=== PATIENT | female | born 1955 | race Caucasian/White ===

== ENCOUNTER 2018-01-22 15:23 | Inpatient (IN) | payer MEDICAID ==
[2018-01-22] MEDS ORDERED: NORMAL SALINE 1000 ML 1,000 ML IV ONE (17:12)
[2018-01-22] MEDS ORDERED: METOCLOPRAMIDE HCL INJ/PF 10 MG/2 ML SDV IV ONE (17:12)
--- NOTE | 2018-01-22 17:13 | ER Document Report ---
ED Medical Screen (RME) - General Chief Complaint: Nausea/Vomiting/Diarrhea Stated Complaint: VOMITING Time Seen by Provider: 01/22/18 17:11 Notes: recent onset of nvd and abd pain TRAVEL OUTSIDE OF THE [place] IN LAST 30 DAYS: No - Related Data Allergies/Adverse Reactions: ketorolac [From Toradol] Allergy (Verified 01/22/18 15:28) muscle relaxers Allergy (Uncoded 08/29/16 10:42) Past Medical History - Social History Chew tobacco use (# tins/day): No Frequency of alcohol use: None Drug Abuse: None - Past Medical History Cardiac Medical History: Denies: Hx Coronary Artery Disease, Hx Heart Attack, Hx Hypertension Pulmonary Medical History: Denies: Hx Asthma, Hx Bronchitis, Hx COPD, Hx Pneumonia Neurological Medical History: Denies: Hx Cerebrovascular Accident, Hx Seizures Renal/ Medical History: Reports: Hx Kidney Stones. Denies: Hx Peritoneal Dialysis Musculoskeltal Medical History: Reports Hx Arthritis Psychiatric Medical History: Reports: Hx Depression Past Surgical History: Reports: Hx Orthopedic Surgery - foot - Immunizations Hx Diphtheria, Pertussis, Tetanus Vaccination: Yes Physical Exam - Vital signs Vitals: Temp Pulse Resp BP Pulse Ox 97.9 F 121 H 16 143/87 H 97 01/22/18 15:42 01/22/18 15:42 01/22/18 15:42 01/22/18 15:42 01/22/18 15:42 Course - Vital Signs Vital signs: Temp Pulse Resp BP Pulse Ox 97.9 F 121 H 16 143/87 H 97 01/22/18 15:42 01/22/18 15:42 01/22/18 15:42 01/22/18 15:42 01/22/18 15:42
[2018-01-22 18:18] LABS: ABSOLUTE MONOCYTES (AUTO) 0.4 10^3/uL (0.1-1.4); ABSOLUTE NEUT (AUTO) 4.6 10^3/uL (1.7-8.2); BASOPHILS % (AUTO) 0.2 % (0-2); EOSINOPHILS % (AUTO) 0.2 % (0-6); HEMATOCRIT 45.3 % (36.0-47.0); HEMOGLOBIN 15.1 g/dL (12.0-15.5); LYMPHOCYTES % (AUTO) 16.2 % (13-45); MEAN CORPUSCULAR HEMOGLOBIN 30.3 pg (27.0-33.4); MEAN CORPUSCULAR HGB CONC 33.3 g/dL (32.0-36.0); MEAN CORPUSCULAR VOLUME 91 fl (80-97); MONOCYTES % (AUTO) 5.9 % (3-13); PLATELET COUNT 272 10^3/uL (150-450); RED BLOOD COUNT 4.98 10^6/uL (3.72-5.28); RED CELL DISTRIBUTION WIDTH 13.9 % (11.5-14.0); SEGMENTED NEUTROPHILS % (AUTO) 77.5 % (42-78); TOTAL CELLS COUNTED % (AUTO) 100 %; WHITE BLOOD COUNT 5.9 10^3/uL (4.0-10.5)
[2018-01-22 18:36] LABS: ALANINE AMINOTRANSFERASE 17 U/L (9-52); ALBUMIN 5.4 g/dL (3.5-5.0); ALKALINE PHOSPHATASE 76 U/L (38-126); ASPARTATE AMINO TRANSFERASE 25 U/L (14-36); BILIRUBIN,DIRECT 0.6 mg/dL (0.0-0.4); BILIRUBIN,TOTAL 0.6 mg/dL (0.2-1.3); BLOOD UREA NITROGEN 10 mg/dL (7-20); CALCIUM 11.8 mg/dL (8.4-10.2); GLUCOSE 94 mg/dL (75-110); LIPASE 268.9 U/L (23-300); POTASSIUM 3.9 mmol/L (3.6-5.0); TOTAL PROTEIN 9.5 g/dL (6.3-8.2)
[2018-01-22 18:42] LABS: CHLORIDE 112 mmol/L (98-107); SODIUM 145.9 mmol/L (137-145)
[2018-01-22 18:44] LABS: ANION GAP 26 (5-19)
[2018-01-22 18:46] LABS: CARBON DIOXIDE 8 mmol/L (22-30)
[2018-01-22 19:12] LABS: APPEARANCE,URINE CLEAR; BILIRUBIN,URINE NEGATIVE (NEGATIVE); COLOR,URINE YELLOW; GLUCOSE, URINE NEGATIVE (NEGATIVE); KETONES,URINE 80 mg/dL (NEGATIVE); LEUKOCYTE ESTERASE,URINE NEGATIVE (NEGATIVE); NITRITE,URINE NEGATIVE (NEGATIVE); PROTEIN,URINE 100 mg/dL (NEGATIVE); URINE SPECIFIC GRAVITY 1.025; UROBILINOGEN,URINE NEGATIVE mg/dL (<2.0)
[2018-01-22] MEDS ORDERED: RINGERS SOLUTION,LACTATED 1,000 ML IV ONE (20:23)
[2018-01-22] MEDS ORDERED: ONDANSETRON HCL INJ/PF 4 MG/2 ML SDV IV ONE (20:32)
[2018-01-22] MEDS ORDERED: OXYCODONE-ACETAMINOPHEN 5-325 MG TABLET PO ONE (20:33)
--- NOTE | 2018-01-22 20:34 | ER Document Report ---
ED General - General Chief Complaint: Nausea/Vomiting/Diarrhea Stated Complaint: VOMITING Time Seen by Provider: 01/22/18 17:11 Notes: Patient is a 62-year-old female with medical history as documented who presents with 3 days of nausea, vomiting and diarrhea. Patient reports that she has been unable to tolerate any fluids during that time. She states that each time she tries to drink fluids she vomits. Nothing seems to improve or worsen her symptoms. Symptoms have been unchanged since onset. She denies a history of similar symptoms in the past. She has not seen a primary care doctor regarding today's concerns. She denies any abdominal pain, chest pain, shortness of breath, headache, neck pain or altered mental status. She is uncertain whether or not she has had sick contacts. TRAVEL OUTSIDE OF THE [place] IN LAST 30 DAYS: No - Related Data Allergies/Adverse Reactions: ketorolac [From Toradol] Allergy (Verified 01/22/18 15:28) alprazolam [From Xanax] Adverse Reaction (Severe, Verified 01/23/18 01:18) promethazine [From Phenergan] Adverse Reaction (Intermediate, Verified 01/23/18 01:18) Diarrhea muscle relaxers Allergy (Intermediate, Uncoded 01/23/18 01:17) other Past Medical History - General Information source: Patient - Social History Smoking Status: Never Smoker Chew tobacco use (# tins/day): No Frequency of alcohol use: None Drug Abuse: None Lives with: Family Family History: Reviewed & Not Pertinent Patient has suicidal ideation: No Patient has homicidal ideation: No - Past Medical History Cardiac Medical History: Denies: Hx Coronary Artery Disease, Hx Heart Attack, Hx Hypertension Pulmonary Medical History: Denies: Hx Asthma, Hx Bronchitis, Hx COPD, Hx Pneumonia Neurological Medical History: Denies: Hx Cerebrovascular Accident, Hx Seizures Renal/ Medical History: Reports: Hx Kidney Stones. Denies: Hx Peritoneal Dialysis Musculoskeltal Medical History: Reports Hx Arthritis Psychiatric Medical History: Reports: Hx Depression Past Surgical History: Reports: Hx Orthopedic Surgery - foot - Immunizations Hx Diphtheria, Pertussis, Tetanus Vaccination: Yes Review of Systems - Review of Systems Notes: Constitutional: Negative for fever. HENT: Negative for sore throat. Eyes: Negative for visual changes. Cardiovascular: Negative for chest pain. Respiratory: Negative for shortness of breath. Gastrointestinal: Positive for vomiting and diarrhea Genitourinary: Negative for dysuria. Musculoskeletal: Negative for back pain. Skin: Negative for rash. Neurological: Negative for headaches, weakness or numbness. 10 point ROS negative except as marked above and in HPI. Physical Exam - Vital signs Vitals: Temp Pulse Resp BP Pulse Ox 97.9 F 121 H 16 143/87 H 97 01/22/18 15:42 01/22/18 15:42 01/22/18 15:42 01/22/18 15:42 01/22/18 15:42 Interpretation: Hypertensive, Tachycardic Notes: PHYSICAL EXAMINATION: GENERAL: Appears slightly uncomfortable but in no acute distress HEAD: Atraumatic, normocephalic. EYES: Pupils equal round and reactive to light, extraocular movements intact, sclera anicteric, conjunctiva are normal. ENT: nares patent, oropharynx clear without exudates. Dry mucous membranes. NECK: Normal range of motion, supple without lymphadenopathy LUNGS: Breath sounds clear to auscultation bilaterally and equal. No wheezes rales or rhonchi. HEART: Regular tachycardia without murmurs ABDOMEN: Soft, nontender, normoactive bowel sounds. No guarding, no rebound. No masses appreciated. EXTREMITIES: Normal range of motion, no pitting or edema. No cyanosis. NEUROLOGICAL: No focal neurological deficits. Moves all extremities spontaneously and on command. PSYCH: Normal mood, normal affect. SKIN: Warm, Dry, normal turgor, no rashes or lesions noted. Course - Re-evaluation Re-evalutation: 01/22/18 20:33 Presentation of an overall well-appearing patient in no acute distress with complaints of nausea, vomiting, diarrhea. This is consistent with likely viral gastroenteritis. Patient has no abdominal tenderness on exam and specifically no tenderness in the RLQ, LLQ, RUQ. Low clinical suspicion for any acute life- threatening etiology based on exam and history including acute cholecystitis, SBO, appendicitis, nephrolithiasis, or pylonephritis. However, she does have severe dehydration with an anion gap and very low bicarb as well as proteinuria and a elevated urine specific gravity. Patient continues to look markedly dehydrated on assessment after receiving 1 L fluid. Will provide an additional liter of fluid and redraw her labs to assess for current status after receiving IV rehydration. 2300-repeat levels do show continued carbonate level patient continues to be quite dehydrated on clinical exam. I discussed with the hospitalist for admission and she has agreed to accept the patient. - Vital Signs Vital signs: Temp Pulse Resp BP Pulse Ox 97.9 F 77 18 121/58 L 97 01/23/18 03:13 01/23/18 03:13 01/23/18 03:13 01/23/18 03:13 01/23/18 03:13 - Laboratory Result Diagrams: 01/22/18 17:59 01/22/18 20:38 Laboratory results interpreted by me: 01/22/18 01/22/18 01/22/18 17:59 18:10 20:30 VBG pCO2 VBG HCO3 Sodium 145.9 H Chloride 112 H Carbon Dioxide 8 L* Anion Gap 26 H Calcium 11.8 H Direct Bilirubin 0.6 H Total Protein 9.5 H Albumin 5.4 H TSH 0.39 L Urine Protein 100 H Urine Ketones 80 H 01/22/18 01/22/18 20:38 20:38 VBG pCO2 24.8 L VBG HCO3 12.1 L Sodium 145.6 H Chloride 115 H Carbon Dioxide 11 L Anion Gap 20 H Calcium 10.4 H Direct Bilirubin Total Protein Albumin TSH Urine Protein Urine Ketones Discharge - Discharge Clinical Impression: Dehydration, severe, Low bicarbonate level, Nausea vomiting and diarrhea Condition: Fair Disposition: ADMITTED OBSERVATION Admitting Provider: Hospitalist - [facility] Unit Admitted: Medical Floor
[2018-01-22 20:55] LABS: VENOUS BLOOD BASE EXCESS -12.2 mmol/L; VENOUS BLOOD HCO3 12.1 mmol/L (20-32); VENOUS BLOOD PCO2 24.8 mmHg (35-63); VENOUS BLOOD PH 7.31 (7.30-7.42)
[2018-01-22 21:15] LABS: BLOOD UREA NITROGEN 9 mg/dL (7-20); CALCIUM 10.4 mg/dL (8.4-10.2); CHLORIDE 115 mmol/L (98-107); GLUCOSE 79 mg/dL (75-110); POTASSIUM 4.2 mmol/L (3.6-5.0)
[2018-01-22 21:21] LABS: ANION GAP 20 (5-19); CARBON DIOXIDE 11 mmol/L (22-30); SODIUM 145.6 mmol/L (137-145)
[2018-01-22] MEDS ORDERED: ACETAMINOPHEN 325 MG TABLET PO PRN (22:02)
[2018-01-22] MEDS ORDERED: PROMETHAZINE HCL INJ 25 MG/1 ML VIAL IV PRN (22:02)
[2018-01-22] MEDS ORDERED: SODIUM BICARBONATE 8.4% INJ 50 MEQ/50 ML DISP.SYRIN IV ONE ×2 (22:09)
[2018-01-23] MEDS ORDERED: (PENDING PHARMACY ID) (Oxycodone Hcl/Acetaminophen [Oxycodone-Acetaminophen 10-325] 1 EACH PO SCH
[2018-01-23] MEDS: METOCLOPRAMIDE HCL INJ/PF 10 MG/2 ML SDV IV PRN ×5 (01:05→23:33)
[2018-01-23] MEDS: ZOLPIDEM TARTRATE 5 MG TABLET PO PRN ×2 (01:06→21:49)
[2018-01-23] MEDS: OXYCODONE-ACETAMINOPHEN 5-325 MG TABLET PO SCH ×5 (01:07→23:33)
[2018-01-23] MEDS: OXYCODONE HCL IR 5 MG TABLET PO SCH ×5 (01:07→23:33)
--- NOTE | 2018-01-23 01:30 | PDOC H&P ---
History of Present Illness Patient complains of: Nausea vomiting and diarrhea x 3 days. History of Present Illness: MILI YEE is a 62 year old female with history of chronic pain syndrome was admitted with above-mentioned complaints. The patient is complaining of abdominal pain secondary to severe nausea and vomiting but denies any fever or chills. She also denies any chest pain but she had some shortness of breath and decreased urine output over the last few days. She denies any sick contacts, eating different kind of food or being on any antibiotics recently. She also denies any syncope or focal weakness but she complains of generalized weakness. She said that she ran out of [employer] and was unable to fill her prescriptions today. Her family advised her to come to the hospital for further management and treatment. In the ED, her temperature was 97.9, heart rate 121, respiratory rate 16, blood pressure 143/87 with oxygen saturation of 97% on room air. Her WBC was 5.9. Her sodium was 145.9, with potassium of 3.9 and bicarb 8. Her blood glucose was 94. She received 1 L normal saline x1 and 1 L Ringer's lactate x1. Repeat bicarb was 11. She was admitted for symptoms management and electrolytes replacement as indicated. Past Medical History Medical History: Other - According to the patient and based on previous records. Cardiac Medical History: Denies: Coronary Artery Disease, Myocardial Infarction, Hypertension Pulmonary Medical History: Denies: Asthma, Bronchitis, Chronic Obstructive Pulmonary Disease (COPD), Pneumonia Neurological Medical History: Denies: Seizures Musculoskeltal Medical History: Reports: Arthritis Psychiatric Medical History: Reports: Depression Hematology: Denies: Anemia Past Surgical History Past Surgical History: Reports: Orthopedic Surgery - left ankle surgery., Other - left pneumothorax post [address] Social History Smoking Status: Former Smoker Cigarettes Packs Per Day: 0 - He used to smoke up to 2 packs a day for 44 years. Frequency of Alcohol Use: None Hx Recreational Drug Use: No - Advance Directive Resuscitation Status: Full Code Family History Parental Family History Reviewed: Yes - Father unknown, mother: diabetes, CAD, Crohn's disease. Children Family History Reviewed: No Sibling(s) Family History Reviewed.: Yes Medication/Allergy Home Medications: Diazepam [Valium 5 mg Tablet] 10 mg PO TID 08/29/16 Megestrol Acetate 20 ml PO DAILY 08/29/16 Oxycodone HCl/Acetaminophen [Oxycodone-Acetaminophen 10-325] 1 each PO Q6 Oxymorphone HCl [Opana ER] 20 mg PO Q12 08/29/16 Suvorexant [Belsomra] 10 mg PO QHS 08/29/16 Vortioxetine Hydrobromide [Trintellix] 5 mg PO DAILY 08/29/16 Allergies/Adverse Reactions: ketorolac [From Toradol] Allergy (Verified 01/22/18 15:28) alprazolam [From Xanax] Adverse Reaction (Severe, Verified 01/23/18 01:18) promethazine [From Phenergan] Adverse Reaction (Intermediate, Verified 01/23/18 01:18) Diarrhea muscle relaxers Allergy (Intermediate, Uncoded 01/23/18 01:17) other Review of Systems ROS unobtainable: Other - Pertinent positives and negatives as detailed in the HPI. Physical Exam Vital Signs: Temp Pulse Resp BP Pulse Ox 97.9 F 121 H 19 143/87 H 97 01/22/18 15:42 01/22/18 15:42 01/22/18 21:00 01/22/18 15:42 01/22/18 15:42 Intake & Output 01/21/18 01/22/18 01/23/18 06:59 06:59 06:59 Weight 63.5 kg General appearance: PRESENT: no acute distress, well-developed Head exam: PRESENT: atraumatic, normocephalic Eye exam: PRESENT: conjunctiva pink, PERRLA. ABSENT: scleral icterus Mouth exam: PRESENT: neck supple. ABSENT: moist Neck exam: PRESENT: full ROM. ABSENT: JVD Respiratory exam: PRESENT: clear to auscultation ford. ABSENT: rales, rhonchi, wheezes Cardiovascular exam: PRESENT: RRR, +S1, +S2 Pulses: PRESENT: normal dorsalis pedis pul GI/Abdominal exam: PRESENT: normal bowel sounds, soft. ABSENT: distended, rebound, tenderness Rectal exam: PRESENT: deferred Extremities exam: PRESENT: full ROM, pedal edema - left leg edema chronic since ankle surgery. Musculoskeletal exam: PRESENT: full ROM Neurological exam: PRESENT: alert, altered, awake. ABSENT: motor sensory deficit - grossly. Skin exam: PRESENT: dry, warm. ABSENT: erythema, rash Results Laboratory Results: 01/22/18 17:59 01/22/18 20:38 01/22/18 01/22/18 01/22/18 17:59 17:59 18:10 WBC 5.9 RBC 4.98 Hgb 15.1 Hct 45.3 MCV 91 MCH 30.3 MCHC 33.3 RDW 13.9 Plt Count 272 Seg Neutrophils % 77.5 Lymphocytes % 16.2 Monocytes % 5.9 Eosinophils % 0.2 Basophils % 0.2 Absolute Neutrophils 4.6 Absolute Lymphocytes 1.0 Absolute Monocytes 0.4 Absolute Eosinophils 0.0 Absolute Basophils 0.0 VBG pH VBG pCO2 VBG HCO3 VBG Base Excess Sodium 145.9 H Potassium 3.9 Chloride 112 H Carbon Dioxide 8 L* Anion Gap 26 H BUN 10 Creatinine 0.71 Est GFR ( Amer) > 60 Est GFR (Non-Af Amer) > 60 Glucose 94 Calcium 11.8 H Total Bilirubin 0.6 AST 25 ALT 17 Alkaline Phosphatase 76 Total Protein 9.5 H Albumin 5.4 H Lipase 268.9 Urine Color YELLOW Urine Appearance CLEAR Urine pH 6.0 Ur Specific [place] 1.025 Urine Protein 100 H Urine Glucose (UA) NEGATIVE Urine Ketones 80 H Urine Blood NEGATIVE Urine Nitrite NEGATIVE Ur Leukocyte Esterase NEGATIVE Urine WBC (Auto) 2 Urine RBC (Auto) 1 01/22/18 01/22/18 20:38 20:38 WBC RBC Hgb Hct MCV MCH MCHC RDW Plt Count Seg Neutrophils % Lymphocytes % Monocytes % Eosinophils % Basophils % Absolute Neutrophils Absolute Lymphocytes Absolute Monocytes Absolute Eosinophils Absolute Basophils VBG pH 7.31 VBG pCO2 24.8 L VBG HCO3 12.1 L VBG Base Excess -12.2 Sodium 145.6 H Potassium 4.2 Chloride 115 H Carbon Dioxide 11 L Anion Gap 20 H BUN 9 Creatinine 0.63 Est GFR ( Amer) > 60 Est GFR (Non-Af Amer) > 60 Glucose 79 Calcium 10.4 H Total Bilirubin AST ALT Alkaline Phosphatase Total Protein Albumin Lipase Urine Color Urine Appearance Urine pH Ur Specific [place] Urine Protein Urine Glucose (UA) Urine Ketones Urine Blood Urine Nitrite Ur Leukocyte Esterase Urine WBC (Auto) Urine RBC (Auto) EKG Comments: none. Assessment & Plan - Diagnosis (1) Nausea vomiting and diarrhea Is this a current diagnosis for this admission?: Yes Plan: Possibly secondary to viral infection. Will check abdominal x-ray and UDS and continue supportive care. (2) Alkalosis, metabolic Is this a current diagnosis for this admission?: Yes Plan: in the setting of nausea vomiting and GI losses. We will give 1 amp of bicarb and start bicarb drip for now. Will repeat serial BMPs and adjust electrolytes as needed. (3) Chronic pain syndrome Is this a current diagnosis for this admission?: No Plan: We will resume her home medications once able to tolerate oral intake. - Time Time Spent: 30 to 50 Minutes Anticipated discharge: Home - Inpatient Certification Based on my medical assessment, after consideration of the patient's comorbidities, presenting symptoms, or acuity I expect that the services needed warrant INPATIENT care.: Yes I certify that my determination is in accordance with my understanding of Medicare's requirements for reasonable and necessary INPATIENT services [42 CFR 412.3e].: Yes
[2018-01-23 03:14] LABS: URINE AMPHETAMINES SCREEN NEGATIVE; URINE BARBITURATES SCREEN NEGATIVE; URINE BENZODIAZEPINES SCREEN UNCONFIRMED POSITIVE; URINE COCAINE SCREEN NEGATIVE; URINE MARIJUANA (THC) SCREEN UNCONFIRMED POSITIVE; URINE METHADONE SCREEN NEGATIVE; URINE PHENCYCLIDINE SCREEN NEGATIVE
[2018-01-23] MEDS: HEPARIN SOD (PORCINE) 5,000 UNIT/ML 1 ML SYRINGE SUBCUT SCH ×3 (06:29→21:49)
[2018-01-23 06:45] LABS: HEMATOCRIT 35.6 % (36.0-47.0); MEAN CORPUSCULAR HEMOGLOBIN 30.4 pg (27.0-33.4); MEAN CORPUSCULAR HGB CONC 33.6 g/dL (32.0-36.0); MEAN CORPUSCULAR VOLUME 91 fl (80-97); PLATELET COUNT 184 10^3/uL (150-450); RED BLOOD COUNT 3.93 10^6/uL (3.72-5.28); RED CELL DISTRIBUTION WIDTH 13.4 % (11.5-14.0); WHITE BLOOD COUNT 3.6 10^3/uL (4.0-10.5)
[2018-01-23 07:15] LABS: ANION GAP 13 (5-19); BLOOD UREA NITROGEN 8 mg/dL (7-20); CALCIUM 9.6 mg/dL (8.4-10.2); CARBON DIOXIDE 17 mmol/L (22-30); CHLORIDE 114 mmol/L (98-107); GLUCOSE 72 mg/dL (75-110); POTASSIUM 3.8 mmol/L (3.6-5.0); SODIUM 143.5 mmol/L (137-145)
[2018-01-23] MEDS ORDERED: RINGERS SOLUTION,LACTATED 1,000 ML IV PRN ×2 (07:56→16:06)
--- NOTE | 2018-01-23 08:31 | RADIOLOGY REPORT (SQ) ---
EXAM DESCRIPTION: ABDOMEN 2 VIEWS COMPLETED DATE/TIME: 01/22/2018 11:04 pm REASON FOR STUDY: nausea/vomiting and diarrhea COMPARISON: None. NUMBER OF VIEWS: Two views. TECHNIQUE: Supine and erect/decubitus radiographic images of the abdomen acquired. LIMITATIONS: None. FINDINGS: FREE AIR: None. No abnormal gas collections. LUNG BASES: Clear. BOWEL GAS PATTERN: Nonobstructive pattern. No dilated loops or air fluid levels. CALCIFICATIONS: No suspicious calcifications. SOFT TISSUES: No gross mass or suggestion of organomegaly. HARDWARE: None in the abdomen. BONES: No acute fracture. No worrisome bone lesions. OTHER: No other significant finding. IMPRESSION: NO RADIOGRAPHIC EVIDENCE FOR ACUTE ABDOMINAL DISEASE. TECHNICAL DOCUMENTATION: JOB ID: [id number] [employer]- All Rights Reserved Reading location - IP/workstation name: [email or web address]
[2018-01-23] MEDS: MEGESTROL ACETATE 20 MG TABLET PO SCH (09:18)
[2018-01-23] MEDS: MAGNESIUM SULFATE/D5W 1 GM/100 ML RTUPB IV SCH ×2 (09:20→10:12)
[2018-01-23] MEDS: DIAZEPAM 5 MG TABLET PO SCH ×3 (09:20→17:49)
[2018-01-23 14:57] LABS: ANION GAP 10 (5-19); BLOOD UREA NITROGEN 6 mg/dL (7-20); CALCIUM 9.1 mg/dL (8.4-10.2); CARBON DIOXIDE 19 mmol/L (22-30); CHLORIDE 113 mmol/L (98-107); GLUCOSE 69 mg/dL (75-110); POTASSIUM 3.2 mmol/L (3.6-5.0); SODIUM 141.9 mmol/L (137-145)
--- NOTE | 2018-01-23 16:05 | PDOC PROGRESS REPORT ---
Subjective Progress Note for:: 01/23/18 Subjective:: The patient is a 62-year-old female with a history of chronic pain syndrome who was admitted on 01/22/18 for nausea, vomiting, diarrhea 3 days resulting in metabolic alkalosis. Patient is seen on morning rounds. She is found resting in bed comfortably on room air. She states that her nausea and vomiting have resolved and that her last loose bowel movement was prior to moving upstairs. Is currently tolerating clear liquids and states that she is feeling quite hungry and requests have her diet advanced. She is hopeful to be discharged either late today or early tomorrow morning as she is feeling significantly better. She has no other questions or concerns at this time. Reason For Visit: NAUSEA/VOMITING AND DIARRHEA Physical Exam Vital Signs: Temp Pulse Resp BP Pulse Ox 98.0 F 74 16 123/52 L 98 01/23/18 15:04 01/23/18 15:04 01/23/18 15:04 01/23/18 15:04 01/23/18 15:04 Intake & Output 01/22/18 01/23/18 01/24/18 06:59 06:59 06:59 Intake Total 50 Balance 50 Weight 64.5 kg General appearance: PRESENT: no acute distress, cooperative, well-developed, well-nourished, other - Overweight Head exam: PRESENT: atraumatic, normocephalic Eye exam: PRESENT: conjunctiva pink, EOMI, PERRLA. ABSENT: scleral icterus Ear exam: PRESENT: normal external ear exam Mouth exam: PRESENT: moist, tongue midline Neck exam: ABSENT: carotid bruit, JVD, lymphadenopathy, thyromegaly Respiratory exam: PRESENT: clear to auscultation fodr, symmetrical, unlabored. ABSENT: rales, rhonchi, wheezes Cardiovascular exam: PRESENT: RRR, +S1, +S2. ABSENT: diastolic murmur, rubs, systolic murmur Pulses: PRESENT: normal dorsalis pedis pul Vascular exam: PRESENT: normal capillary refill GI/Abdominal exam: PRESENT: normal bowel sounds, soft. ABSENT: distended, guarding, mass, organolmegaly, rebound, tenderness Rectal exam: PRESENT: deferred Extremities exam: PRESENT: full ROM. ABSENT: calf tenderness, clubbing, pedal edema Neurological exam: PRESENT: alert, awake, oriented to person, oriented to place , oriented to time, oriented to situation, CN II-XII grossly intact. ABSENT: motor sensory deficit Psychiatric exam: PRESENT: appropriate affect, normal mood. ABSENT: homicidal ideation, suicidal ideation Skin exam: PRESENT: dry, intact, warm. ABSENT: cyanosis, rash Results Laboratory Results: 01/23/18 06:11 01/23/18 14:27 01/23/18 01/23/18 01/23/18 06:11 06:11 14:27 WBC 3.6 L RBC 3.93 Hgb 12.0 D Hct 35.6 L MCV 91 MCH 30.4 MCHC 33.6 RDW 13.4 Plt Count 184 Sodium 143.5 141.9 Potassium 3.8 3.2 L Chloride 114 H 113 H Carbon Dioxide 17 L 19 L Anion Gap 13 10 BUN 8 6 L Creatinine 0.54 0.54 Est GFR ( Amer) > 60 > 60 Est GFR (Non-Af Amer) > 60 > 60 Glucose 72 L 69 L Calcium 9.6 9.1 Magnesium 1.5 L Impressions: Abdomen X-Ray 01/22/18 00:00 IMPRESSION: NO RADIOGRAPHIC EVIDENCE FOR ACUTE ABDOMINAL DISEASE. Assessment & Plan - Diagnosis (1) Alkalosis, metabolic Is this a current diagnosis for this admission?: Yes Plan: Secondary to GI losses. The patient received 1 amp of bicarbonate and was placed on a bicarb drip overnight. The patient's bicarb trended upwards and a bicarb drip was discontinued by the admitting physician early this morning. The patient continues on gentle IV maintenance fluids. She is tolerating a clear liquid diet; will advance as tolerated. Continue to monitor with serial BMPs. (2) Nausea vomiting and diarrhea Is this a current diagnosis for this admission?: Yes Plan: Improved; the patient is now tolerating a clear liquid diet, will advance as tolerated. Abdominal x-ray is negative for acute process. UDS is positive for benzodiazepines which is expected and and confirmed THC. Symptoms are possibly secondary to viral infection versus illicit drug use. We will continue gentle IV maintenance fluids. Antiemetics as needed. Will advanced to a full liquied diet; may advance as tolerated. Anticipate discharge to home tomorrow. (3) Hypomagnesemia Is this a current diagnosis for this admission?: Yes Plan: Magnesium of 1.5 cm. Replaced; will continue to monitor. (4) Hypokalemia Is this a current diagnosis for this admission?: Yes Plan: Potassium 3.2 this morning. Magnesium corrected; will provide p.o. potassium supplementation and advance diet as tolerated. Will continue to monitor and replace as needed. (5) Chronic pain syndrome Is this a current diagnosis for this admission?: No Plan: Patient's home medication regimen is resumed now that she is tolerating oral intake. - Time Time Spent with patient: 25-34 minutes Anticipated discharge: Home Within: within 24 hours
[2018-01-23] MEDS: POTASSIUM CHLORIDE 20 MEQ/15 ML UDCUP PO SCH ×2 (17:49→21:50)
[2018-01-24] MEDS: METOCLOPRAMIDE HCL INJ/PF 10 MG/2 ML SDV IV PRN (05:14)
[2018-01-24] MEDS: OXYCODONE HCL IR 5 MG TABLET PO SCH (05:14)
[2018-01-24] MEDS: OXYCODONE-ACETAMINOPHEN 5-325 MG TABLET PO SCH (05:14)
[2018-01-24] MEDS: HEPARIN SOD (PORCINE) 5,000 UNIT/ML 1 ML SYRINGE SUBCUT SCH (05:14)
[2018-01-24 06:43] LABS: HEMATOCRIT 34.7 % (36.0-47.0); HEMOGLOBIN 11.6 g/dL (12.0-15.5); MEAN CORPUSCULAR HEMOGLOBIN 30.3 pg (27.0-33.4); MEAN CORPUSCULAR HGB CONC 33.4 g/dL (32.0-36.0); MEAN CORPUSCULAR VOLUME 91 fl (80-97); PLATELET COUNT 153 10^3/uL (150-450); RED BLOOD COUNT 3.83 10^6/uL (3.72-5.28); RED CELL DISTRIBUTION WIDTH 13.3 % (11.5-14.0); WHITE BLOOD COUNT 3.8 10^3/uL (4.0-10.5)
[2018-01-24 07:02] LABS: ANION GAP 12 (5-19); BLOOD UREA NITROGEN 5 mg/dL (7-20); CALCIUM 9.5 mg/dL (8.4-10.2); CARBON DIOXIDE 20 mmol/L (22-30); CHLORIDE 111 mmol/L (98-107); GLUCOSE 79 mg/dL (75-110); POTASSIUM 3.4 mmol/L (3.6-5.0); SODIUM 143.2 mmol/L (137-145)
[2018-01-24] MEDS ORDERED: POTASSIUM CHLORIDE 10 MEQ TABLET.SA PO ONE (08:30)
[2018-01-24 08:42] VITALS: BP 125/62
[2018-01-24] MEDS: DIAZEPAM 5 MG TABLET PO SCH (08:50)
[2018-01-24] MEDS: MEGESTROL ACETATE 20 MG TABLET PO SCH (08:51)
--- NOTE | 2018-01-24 18:45 | PDOC DISCHARGE SUMMARY ---
General - Admit/Disc Date/PCP Admission Date/Primary Care Provider: 01/22/18 22:11 Discharge Date: 01/24/18 - Discharge Diagnosis (1) Alkalosis, metabolic Is this a current diagnosis for this admission?: Yes Summary: Resolved following IV bicarbonate and IV fluids. Secondary to gastroenteritis resulting in nausea vomiting and diarrhea. (2) Nausea vomiting and diarrhea Is this a current diagnosis for this admission?: Yes Summary: Resolved with supportive care. She is now tolerating a regular diet. (3) Hypomagnesemia Is this a current diagnosis for this admission?: Yes Summary: Replete (4) Hypokalemia Is this a current diagnosis for this admission?: Yes Summary: Replete (5) Chronic pain syndrome Is this a current diagnosis for this admission?: No - Additional Information Resuscitation Status: Full Code Discharge Diet: As Tolerated Discharge Activity: Activity As Tolerated, Balance Activity w/Rest, Slowly Increase Activity Home Medications: Buprenorphine [Butrans] 20 mcg TOP TU@1000 01/23/18 Diazepam [Valium] 10 mg PO Q8HP PRN 01/23/18 Megestrol Acetate 600 mg PO DAILY 01/23/18 Ondansetron HCl [Zofran 4 mg Tablet] 4 mg PO DAILYP PRN 01/23/18 Oxycodone HCl/Acetaminophen [Oxycodone-Acetaminophen 5-325] 1 tab PO Q6HP PRN Suvorexant [Belsomra] 10 mg PO QHS 01/23/18 Vortioxetine Hydrobromide [Trintellix] 5 mg PO Q12 01/23/18 History of Present Illness History of Present Illness: MILI YEE is a 62 year old female with history of chronic pain syndrome was admitted with above-mentioned complaints. The patient is complaining of abdominal pain secondary to severe nausea and vomiting but denies any fever or chills. She also denies any chest pain but she had some shortness of breath and decreased urine output over the last few days. She denies any sick contacts, eating different kind of food or being on any antibiotics recently. She also denies any syncope or focal weakness but she complains of generalized weakness. She said that she ran out of [employer] and [email or web address] and was unable to fill her prescriptions today. Her family advised her to come to the hospital for further management and treatment. In the ED, her temperature was 97.9, heart rate 121, respiratory rate 16, blood pressure 143/87 with oxygen saturation of 97% on room air. Her WBC was 5.9. Her sodium was 145.9, with potassium of 3.9 and bicarb 8. Her blood glucose was 94. She received 1 L normal saline x1 and 1 L Ringer's lactate x1. Repeat bicarb was 11. She was admitted for symptoms management and electrolytes replacement as indicated. Hospital Course Hospital Course: The patient was admitted with metabolic alkalosis which resolved with bicarb and IV fluid replacement. She did require magnesium and potassium replacement. This was secondary to gastroenteritis resulting in nausea, vomiting and diarrhea. She was provided antiemetics and placed on bowel rest. Her symptoms resolved and she was started on clear liquid diet which was advanced to a regular diet by date of discharge. The patient was scheduled to be discharged today, however left AGAINST MEDICAL ADVICE this morning prior to my seeing the patient today. She did not require any new prescriptions. Per nursing, she was advised to follow-up with her primary care provider within 1 week. Physical Exam Vital Signs: Temp Pulse Resp BP Pulse Ox 98.2 F 80 20 125/62 96 01/24/18 07:41 01/24/18 07:41 01/24/18 07:41 01/24/18 07:41 01/24/18 10:20 Intake & Output 01/23/18 01/24/18 01/25/18 06:59 06:59 06:59 Intake Total 50 360 Output Total 400 Balance 50 -40 Weight 64.5 kg 64.5 kg General appearance: PRESENT: well-nourished Eye exam: ABSENT: scleral icterus Additional comments: The patient left AGAINST MEDICAL ADVISE prior to anticipated discharge today; no physical exam was completed. Results Laboratory Results: 01/24/18 06:05 01/24/18 06:05 01/24/18 01/24/18 06:05 06:05 WBC 3.8 L RBC 3.83 Hgb 11.6 L Hct 34.7 L MCV 91 MCH 30.3 MCHC 33.4 RDW 13.3 Plt Count 153 Sodium 143.2 Potassium 3.4 L Chloride 111 H Carbon Dioxide 20 L Anion Gap 12 BUN 5 L Creatinine 0.51 L Est GFR ( Amer) > 60 Est GFR (Non-Af Amer) > 60 Glucose 79 Calcium 9.5 Magnesium 1.6 Impressions: Abdomen X-Ray 01/22/18 00:00 IMPRESSION: NO RADIOGRAPHIC EVIDENCE FOR ACUTE ABDOMINAL DISEASE. Qualifiers - * PATEINT BEING DISCHARGED WITH ANY OF THE FOLLOWING DIAGNOSIS?: No
== END 2018-01-24 10:50 | disposition left against medical advice (07) | DRG 392 ==
LOC: ER 15:23 → EH 22:11 → OBSVTOIN 22:11 → 2N 01-23 00:26
PROVIDERS: ADMIT Internal Medicine Geriatric Medicine; ATTEND Internal Medicine Geriatric Medicine
DX: K52.9 Noninfective gastroenteritis and colitis, unspecified (principal); E87.3 Alkalosis; E83.42 Hypomagnesemia; E87.6 Hypokalemia; G89.4 Chronic pain syndrome; M19.90 Unspecified osteoarthritis, unspecified site; F32.9 Major depressive disorder, single episode, unspecified; E86.0 Dehydration; Z87.891 Personal history of nicotine dependence; Z88.8 Allergy status to other drugs, medicaments and biological substances; Z83.3 Family history of diabetes mellitus; Z82.49 Family history of ischemic heart disease and other diseases of the circulatory system
CPT/HCPCS: 36415; 74019; 80048; 80053; 80307; 81001; 82803; 83690; 83735; 84443; 85025; 85027; 96361; 96365; 96375; 99285; J1644; J2405; J2765; J3475; J3490; J7030; J7120

== ENCOUNTER 2018-05-10 14:42 | Emergency (ER) | payer MEDICAID ==
[2018-05-10] MEDS ORDERED: MORPHINE SULFATE 10 MG/ML INJ IV ONE (15:50)
--- NOTE | 2018-05-10 15:52 | ER Document Report ---
ED Medical Screen (RME) - General Chief Complaint: Abdominal Pain Stated Complaint: ABDOMINAL PAIN Time Seen by Provider: 05/10/18 15:47 Mode of Arrival: Wheelchair Information source: Patient Notes: 63-year-old female presents to ED for complaint planed of severe periumbilical abdominal pain 3 days. She denies any nausea vomiting or diarrhea. She states she was sick a couple weeks ago and ended up in the hospital for nausea vomiting and diarrhea. She states at times her hands become very sweaty and the pain is all around her umbilicus. When I attempted to examine the abdomen and went close to the umbilicus she said the pain was too severe she could not tolerate it. Lungs are clear. I have greeted and performed a rapid initial assessment of this patient. A comprehensive ED assessment and evaluation of the patient, analysis of test results and completion of medical decision making process will be conducted by an additional ED providers. TRAVEL OUTSIDE OF THE [place] IN LAST 30 DAYS: No - Related Data Allergies/Adverse Reactions: ketorolac [From Toradol] Allergy (Verified 05/10/18 15:47) alprazolam [From Xanax] Adverse Reaction (Severe, Verified 05/10/18 15:47) promethazine [From Phenergan] Adverse Reaction (Intermediate, Verified 05/10/18 15:47) Diarrhea muscle relaxers Allergy (Intermediate, Uncoded 05/10/18 15:47) other Past Medical History - Social History Chew tobacco use (# tins/day): No Frequency of alcohol use: None Drug Abuse: None - Past Medical History Cardiac Medical History: Denies: Hx Coronary Artery Disease, Hx Heart Attack, Hx Hypertension Pulmonary Medical History: Denies: Hx Asthma, Hx Bronchitis, Hx COPD, Hx Pneumonia Neurological Medical History: Denies: Hx Cerebrovascular Accident, Hx Seizures Renal/ Medical History: Reports: Hx Kidney Stones. Denies: Hx Peritoneal Dialysis Musculoskeltal Medical History: Reports Hx Arthritis Psychiatric Medical History: Reports: Hx Depression Past Surgical History: Reports: Hx Orthopedic Surgery - foot, Other - left pneumothorax post [address] - Immunizations Hx Diphtheria, Pertussis, Tetanus Vaccination: Yes History of Influenza Vaccine for 07/2017 - 12/2017 Season: No Physical Exam - Vital signs Vitals: Temp Pulse Resp BP Pulse Ox 98.7 F 93 18 131/81 H 97 05/10/18 14:50 05/10/18 14:50 05/10/18 14:50 05/10/18 14:50 05/10/18 14:50 Course - Vital Signs Vital signs: Temp Pulse Resp BP Pulse Ox 98.7 F 93 18 131/81 H 97 05/10/18 14:50 05/10/18 14:50 05/10/18 14:50 05/10/18 14:50 05/10/18 14:50
[2018-05-10 16:52] LABS: APPEARANCE,URINE SLIGHTLY-CLOUDY; BILIRUBIN,URINE NEGATIVE (NEGATIVE); CALCIUM OXALATE CRYSTALS,URINE FEW /HPF; COLOR,URINE YELLOW; GLUCOSE, URINE NEGATIVE (NEGATIVE); KETONES,URINE 20 mg/dL (NEGATIVE); LEUKOCYTE ESTERASE,URINE NEGATIVE (NEGATIVE); NITRITE,URINE NEGATIVE (NEGATIVE); PROTEIN,URINE NEGATIVE (NEGATIVE); URINE SPECIFIC GRAVITY 1.025
[2018-05-10 16:56] LABS: ABSOLUTE EOSINOPHILS # (AUTO) 0.1 10^3/uL (0.0-0.6); ABSOLUTE LYMPHOCYTES (AUTO) 1.2 10^3/uL (0.5-4.7); ABSOLUTE MONOCYTES (AUTO) 0.3 10^3/uL (0.1-1.4); ABSOLUTE NEUT (AUTO) 3.9 10^3/uL (1.7-8.2); BASOPHILS % (AUTO) 0.4 % (0-2); EOSINOPHILS % (AUTO) 1.3 % (0-6); HEMATOCRIT 41.4 % (36.0-47.0); LYMPHOCYTES % (AUTO) 21.5 % (13-45); MEAN CORPUSCULAR HEMOGLOBIN 30.4 pg (27.0-33.4); MEAN CORPUSCULAR HGB CONC 33.8 g/dL (32.0-36.0); MEAN CORPUSCULAR VOLUME 90 fl (80-97); MONOCYTES % (AUTO) 6.1 % (3-13); PLATELET COUNT 284 10^3/uL (150-450); RED CELL DISTRIBUTION WIDTH 14.1 % (11.5-14.0); SEGMENTED NEUTROPHILS % (AUTO) 70.7 % (42-78); TOTAL CELLS COUNTED % (AUTO) 100 %; WHITE BLOOD COUNT 5.5 10^3/uL (4.0-10.5)
[2018-05-10 17:16] LABS: ALANINE AMINOTRANSFERASE 9 U/L (9-52); ALBUMIN 4.8 g/dL (3.5-5.0); ALKALINE PHOSPHATASE 74 U/L (38-126); ANION GAP 16 (5-19); ASPARTATE AMINO TRANSFERASE 20 U/L (14-36); BILIRUBIN,DIRECT 0.4 mg/dL (0.0-0.4); BILIRUBIN,TOTAL 0.5 mg/dL (0.2-1.3); BLOOD UREA NITROGEN 15 mg/dL (7-20); CALCIUM 10.3 mg/dL (8.4-10.2); CARBON DIOXIDE 26 mmol/L (22-30); CHLORIDE 105 mmol/L (98-107); GLUCOSE 101 mg/dL (75-110); POTASSIUM 4.3 mmol/L (3.6-5.0); SODIUM 146.6 mmol/L (137-145); TOTAL PROTEIN 8.5 g/dL (6.3-8.2)
--- NOTE | 2018-05-10 19:13 | RADIOLOGY REPORT (SQ) ---
EXAM DESCRIPTION: CT ABD/PELVIS WITH IV ONLY COMPLETED DATE/TIME: 05/10/2018 6:59 pm REASON FOR STUDY: Periumbilical severe pain COMPARISON: None. TECHNIQUE: CT scan of the abdomen and pelvis performed using helical scanning technique with dynamic intravenous contrast injection. No oral contrast. Images reviewed with lung, soft tissue, and bone windows. Reconstructed coronal and sagittal MPR images reviewed. Delayed images for evaluation of the urinary system also acquired. All images stored on PACS. All CT scanners at this facility use dose modulation, iterative reconstruction, and/or weight based d osing when appropriate to reduce radiation dose to as low as reasonably achievable (ALARA). [facility]: Dose Right [facility]: CareDose [facility]: Dose Right [facility]: Teradose 4D [facility]: [employer] CONTRAST TYPE AND DOSE: contrast/concentration: Isovue 370.00 mg/ml; Total Contrast Delivered: 64.0 ml; Total Saline Delivered: 65.0 ml RENAL FUNCTION: BUN 15 creatinine 0.75 RADIATION DOSE: CT Rad equipment meets quality standard of care and radiation dose reduction techniq ues were employed. CTDIvol: 4.8 - 5.1 mGy. DLP: 473 mGy-cm.. LIMITATIONS: None. FINDINGS: LOWER CHEST: No significant findings. No nodules or infiltrates. LIVER: Normal size. No masses. No dilated ducts. SPLEEN: Normal size. No focal lesions. PANCREAS: No masses. No significant calcifications. No adjacent inflammation or peripancreatic fluid collections. Pancreatic duct not dilated. GALLBLADDER: No identified stones by CT criteria. No inflammatory changes to suggest cholecystitis. ADRENAL GLANDS: No significant masses or asymmetry. RIGHT KIDNEY AND URETER: No solid masses. No significant calcifications. No hydronephrosis or hyd roureter. LEFT KIDNEY AND URETER: No solid masses. No significant calcifications. No hydronephrosis or hydr oureter. AORTA AND VESSELS: No aneurysm. No dissection. Renal arteries, SMA, celiac without stenosis. RETROPERITONEUM: No retroperitoneal adenopathy, hemorrhage or masses. BOWEL AND PERITONEAL CAVITY: No masses or inflammatory changes. No free fluid or peritoneal masses. APPENDIX: Normal. PELVIS: There is minimal amount of free fluid in the pelvis. No masses are present. ABDOMINAL WALL: No masses. No hernias. BONES: No significant or acute findings. OTHER: No other significant finding. IMPRESSION: Minimal free fluid in the pelvis. No acute abdominal or pelvic findings to explain the patient's pain. TECHNICAL DOCUMENTATION: JOB ID: [id number] Quality ID # [id number]: Final reports with documentation of one or more dose reduction techniques (e.g., Au tomated exposure control, adjustment of the mA and/or kV according to patient size, use of iterative reconstruction technique) 2010 [employer]- All Rights Reserved Reading location - IP/workstation name: [email or web address]
[2018-05-10] MEDS ORDERED: MORPHINE SULFATE 10 MG/ML INJ IV PRN (19:23)
[2018-05-10] MEDS ORDERED: HYOSCYAMINE SULFATE 0.125 MG TABLET PO ONE (19:25)
[2018-05-10] MEDS ORDERED: CIPROFLOXACIN HCL 500 MG TABLET PO ONE (20:22)
--- NOTE | 2018-05-10 20:38 | ER Document Report ---
ED General - General Chief Complaint: Abdominal Pain Stated Complaint: ABDOMINAL PAIN Time Seen by Provider: 05/10/18 15:47 Mode of Arrival: Wheelchair Notes: Patient is a 63 year old female without chronic medical problems who presents with 3 days of periumbilical pain. She describes the pain as an aching, throbbing, stabbing pain. She states that nothing seems to improve or worsen his pain. Contrary to triage assessment the patient does note associated diarrhea as well as vomiting. She states that those symptoms seem to be worsened by any attempt at eating. She has not had any fever or constitutional symptoms. She has not seen her general doctor regarding today's concerns. No history of prior abdominal surgeries. She has not had any vaginal bleeding, vaginal discharge or dysuria. Symptoms have been unchanged since onset. TRAVEL OUTSIDE OF THE [place] IN LAST 30 DAYS: No - Related Data Allergies/Adverse Reactions: ketorolac [From Toradol] Allergy (Verified 05/10/18 15:47) alprazolam [From Xanax] Adverse Reaction (Severe, Verified 05/10/18 15:47) promethazine [From Phenergan] Adverse Reaction (Intermediate, Verified 05/10/18 15:47) Diarrhea muscle relaxers Allergy (Intermediate, Uncoded 05/10/18 15:47) other Past Medical History - General Information source: Patient - Social History Smoking Status: Former Smoker Chew tobacco use (# tins/day): No Frequency of alcohol use: None Drug Abuse: None Lives with: Family Family History: Reviewed & Not Pertinent Patient has suicidal ideation: No Patient has homicidal ideation: No - Past Medical History Cardiac Medical History: Denies: Hx Coronary Artery Disease, Hx Heart Attack, Hx Hypertension Pulmonary Medical History: Denies: Hx Asthma, Hx Bronchitis, Hx COPD, Hx Pneumonia Neurological Medical History: Denies: Hx Cerebrovascular Accident, Hx Seizures Renal/ Medical History: Reports: Hx Kidney Stones. Denies: Hx Peritoneal Dialysis Musculoskeletal Medical History: Reports Hx Arthritis Psychiatric Medical History: Reports: Hx Depression Past Surgical History: Reports: Hx Orthopedic Surgery - foot, Other - left pneumothorax post [address] - Immunizations Hx Diphtheria, Pertussis, Tetanus Vaccination: Yes Review of Systems - Review of Systems Notes: Constitutional: Negative for fever. HENT: Negative for sore throat. Eyes: Negative for visual changes. Cardiovascular: Negative for chest pain. Respiratory: Negative for shortness of breath. Gastrointestinal: Positive for abdominal pain, vomiting and diarrhea Genitourinary: Negative for dysuria. Musculoskeletal: Negative for back pain. Skin: Negative for rash. Neurological: Negative for headaches, weakness or numbness. 10 point ROS negative except as marked above and in HPI. Physical Exam - Vital signs Vitals: Temp Pulse BP Pulse Ox 97.8 F 94 131/81 H 96 05/10/18 14:48 05/10/18 14:48 05/10/18 14:48 05/10/18 14:48 Interpretation: Normal Notes: PHYSICAL EXAMINATION: GENERAL: Well-appearing, well-nourished and in no acute distress. HEAD: Atraumatic, normocephalic. EYES: Pupils equal round and reactive to light, extraocular movements intact, sclera anicteric, conjunctiva are normal. ENT: nares patent, oropharynx clear without exudates. Moderately dry mucous membranes. NECK: Normal range of motion, supple without lymphadenopathy LUNGS: Breath sounds clear to auscultation bilaterally and equal. No wheezes rales or rhonchi. HEART: Regular rate and rhythm without murmurs ABDOMEN: Soft, minimal periumbilical tenderness on palpation but no other areas of localized tenderness, normoactive bowel sounds. No guarding, no rebound. No masses appreciated. EXTREMITIES: Normal range of motion, no pitting or edema. No cyanosis. NEUROLOGICAL: No focal neurological deficits. Moves all extremities spontaneously and on command. PSYCH: Normal mood, normal affect. SKIN: Warm, Dry, normal turgor, no rashes or lesions noted. Course - Re-evaluation Re-evalutation: 05/10/18 20:33 Patient presents with 3 days of lower abdominal pain around the periumbilical region. She has also had associated nausea and vomiting as well as diarrhea contrary to the triage assessment. Her vitals at time of presentation are unremarkable without tachycardia, hypotension or fever. Her labs likewise are broadly unremarkable without evidence of a leukocytosis, elevated LFTs, elevated lipase, or abnormal urinalysis. A CT scan of the abdomen and pelvis is unremarkable and has an appropriate visualization of the appendix. Her abdominal exam itself is quite benign without any rigidity, rebound or guarding. There is some mild diffuse lower abdominal tenderness without focal localization to the right lower quadrant. Very low clinical suspicion based on exam, imaging, labs, vitals and history for an acute appendicitis, perforated bowel, mesenteric ischemia, or any alternative life-threatening condition. Trace free fluid is noted on the CT the abdomen pelvis although the exact etiology of this is uncertain at this point. I have explained the patient that I am uncertain of the exact cause of her diagnosis although an infectious colitis could be a consideration given her constellation of symptoms. I will empirically trial a 3-day course of ciprofloxacin to see if this improves the patient's symptoms. She has been able to tolerate oral intake without difficulty. I have emphasized at length that this patient that I am uncertain of what is the cause of her symptoms today but given her overall reassuring workup I think it is safe for her to follow-up as an outpatient. We have reviewed that she is to return to the emergency department immediately if she has worsening of her abdominal pain, failure of her pain to resolve, fever of greater than 100.4 F, persistent vomiting that prevents her from being able to tolerate intake, or any other symptoms that are worrisome to her. She is agreeable to this plan and has verbalized understanding of these indications to return to the emergency department. - Vital Signs Vital signs: Temp Pulse Resp BP Pulse Ox 97.9 F 77 18 113/60 97 05/10/18 21:29 05/10/18 21:29 05/10/18 21:29 05/10/18 21:29 05/10/18 21:29 - Laboratory Result Diagrams: 05/10/18 16:40 05/10/18 16:40 Laboratory results interpreted by me: 05/10/18 05/10/18 05/10/18 16:27 16:40 16:40 RDW 14.1 H Sodium 146.6 H Calcium 10.3 H Total Protein 8.5 H Urine Ketones 20 H Urine Urobilinogen 2.0 H - Diagnostic Test Radiology reviewed: Reports reviewed Discharge - Discharge Clinical Impression: Lower abdominal pain, Nausea vomiting and diarrhea Condition: Good Disposition: HOME, SELF-CARE Additional Instructions: You have been seen in the Emergency Department (ED) for abdominal pain. Your evaluation did not identify a clear cause of your symptoms but was generally reassuring. Your being trialed on a short course of ciprofloxacin to see if this improves your symptoms as it is possible they are related to an infectious cause. Please follow up with your doctor as soon as possible regarding today's emergent visit and the symptoms that are bothering you. Return to the ED if your abdominal pain worsens or fails to improve, you develop bloody vomiting, bloody diarrhea, you are unable to tolerate fluids due to vomiting, fever greater than 101, or other symptoms that concern you. Prescriptions: Hyoscyamine Sulfate [Levsin-Sl] 0.125 mg SL Q12HP PRN #30 tab.subl PRN Reason: Ciprofloxacin HCl [Cipro 500 mg Tablet] 500 mg PO BID #6 tablet
[2018-05-10 21:37] VITALS: BP 113/60
== END 2018-05-10 21:37 | disposition home or self-care (01) ==
LOC: ER 14:42
DX: R10.33 Periumbilical pain (principal); R10.30 Lower abdominal pain, unspecified; R19.7 Diarrhea, unspecified; R11.2 Nausea with vomiting, unspecified; Z87.891 Personal history of nicotine dependence
CPT/HCPCS: 99284; 96374; 36415; 85025; 80053; 81001; 74177; J3490 ×2; J2270